=== PATIENT | male | born 1990 | race Caucasian/White ===

== ENCOUNTER 2018-01-05 14:28 | Emergency (ER) | payer BC ==
[2018-01-05] MEDS: LORAZEPAM 1 MG TAB PO (16:11)
== END 2018-01-05 16:39 | disposition home or self-care (01) ==
LOC: FTE 14:28
DX: F41.9 Anxiety disorder, unspecified (principal); E11.9 Type 2 diabetes mellitus without complications; I10 Essential (primary) hypertension; Z76.0 Encounter for issue of repeat prescription; Z79.84 Long term (current) use of oral hypoglycemic drugs
CPT/HCPCS: 99282; Z7502